=== PATIENT | female | born 1950 | race Hispanic/Latino ===

== ENCOUNTER 2021-05-08 06:24 | Emergency (ER) | payer OTHER ==
[2021-05-08 07:35] LABS: Protime INR 0.99
[2021-05-08 07:58] LABS: Absolute Lymphocytes (CBC) 1.4 K/uL (0.7-4.9); Basophils % 0.8 % (0-1.3); Lymphocytes % 18.7 % (15.3-44.8); MPV 8.2 fL (7.6-11.3); RBC Red Blood Cell Count 4.33 M/uL (3.86-4.86)
[2021-05-08 08:06] LABS: ALT/SGPT 26 U/L (12-78); AST/SGOT 18 U/L (15-37); Albumin 3.8 g/dL (3.4-5.0); Alkaline Phosphatase 94 U/L (45-117); BUN Blood Urea Nitrogen 20 mg/dL (7-18); Bicarbonate 29 mmol/L (21-32); Bilirubin Direct 0.1 mg/dL (0-0.2); Bilirubin Total 0.5 mg/dL (0.2-1.0); Glucose Level 144 mg/dL (74-106); Magnesium 1.8 mg/dL (1.8-2.4); NT PRO-BNP 69 pg/mL (<125); Potassium 3.9 mmol/L (3.5-5.1); Protein, Total 7.7 g/dL (6.4-8.2); Sodium Level 140 mmol/L (136-145); Troponin (Emerg Dept Use Only) < 0.02 ng/mL (0.0-0.045)
[2021-05-08 08:33] LABS: Lipase 197 U/L (73-393)
[2021-05-08 08:35] LABS: Urine Blood Trace-intact (Negative); Urine Glucose Negative (Negative); Urine Protein Negative (Negative); Urine Specific Gravity 1.025 (1.005-1.030); Urine pH 5.5 (5.0-7.0)
--- NOTE | 2021-05-08 09:07 | RAD REPORT ---
EXAM DESCRIPTION: CT - Abdomen Pelvis W Contrast - 05/08/2021 8:45 am CLINICAL HISTORY: Abdominal pain/left flank pain COMPARISON: none. TECHNIQUE: Computed axial tomography of the abdomen pelvis was obtained. 100 cc Isovue-300 was admin istered intravenously. Oral contrast was not requested which limits evaluation of bowel. All CT scans are performed using dose optimization technique as appropriate and may include automated exposure control or mA/KV adjustment according to patient size. FINDINGS: Some of the images are degraded by patient motion artifact. 5 millimeter nodule left lower lobe. Mild prominence of left and caudate lobes of the liver. Cholecystectomy Spleen, pancreas, adrenals kidneys are unremarkable. There is no evidence of diverticulitis. Normal appendix. No adnexal mass. IMPRESSION: Mild prominence of the caudate and left lobes of the liver may indicate chronic disease 5 millimeter left lower lobe pulmonary nodule. Refer to the chest x-ray report on today's date for re commendation
--- NOTE | 2021-05-08 09:08 | RAD REPORT ---
EXAM DESCRIPTION: Annie Single View05/08/2021 7:23 am CLINICAL HISTORY: Chest pain COMPARISON: 2011 FINDINGS: The lungs appear clear of acute infiltrate. The heart is mildly to moderately enlarged. Prominent opacity overlies medial right/ascending thoracic aorta. IMPRESSION: Prominent opacity overlies medial right/ascending thoracic aorta. This may represent an ectatic aorta or aneurysm. Probably less likely lymphadenopathy. CT chest is recommended
[2021-05-08] MEDS ORDERED: NA CHLORIDE 0.9% 500 ML ONE (09:36)
[2021-05-08] MEDS ORDERED: KETOROLAC 30 MG/ML INJ ONE (09:36)
[2021-05-08 10:01] LABS: Urine Bacteria 20-50 /HPF (<20); Urine RBC NONE SEEN /HPF (NONE SEEN); Urine Urothelial Cells <5 /HPF (NONE SEEN)
--- NOTE | 2021-05-08 10:18 | RAD REPORT ---
EXAM DESCRIPTION: CT - Thorax Wo Con - 05/08/2021 9:51 am CLINICAL HISTORY: Abnormal chest x-ray COMPARISON: April 2021 chest x-ray TECHNIQUE: Computed axial tomography of the chest was obtained. Contrast was not requested. All CT scans are performed using dose optimization technique as appropriate and may include automated exposure control or mA/KV adjustment according to patient size. FINDINGS: The evaluation of mediastinum, willis and vessels is limited secondary to lack of IV contras t administration. The lungs are clear. Right and left lobes of the thyroid gland or enlarged and narrow trachea. The left lobe of thyroid gl and extends substernally. Calcifications within the thyroid gland are present. Borderline enlargement of the central pulmonary artery. This in combination with a mildly ectatic asc ending thoracic aorta result in prominence of right mediastinum/hilum seen on chest x-ray. No thoraci c aortic aneurysm A pleural effusion is not present. No pericardial effusion IMPRESSION: Thyromegaly with substernal thyroid goiter. Borderline enlargement of central pulmonary artery.
--- NOTE | 2021-05-08 12:00 | ER ---
Nurse's Notes [facility] Name: Xochitl Barrera Age: 70 yrs Sex: Female : 1950 Arrival Date: 05/08/2021 Time: 06:27 Bed 19 Private MD: Diagnosis: UTI/ Urinary tract infection, site not specified;Abdominal pain, unspecified Presentation: 05/08 06:43 Chief complaint: Patient states: left sided abdominal pain/chest pain that radiates kg into left side of back, denies N/V/D/F, pain is worse with inspiration. Coronavirus screen: Client denies travel out of the [place] in the last 14 days. Ebola Screen: Patient negative for fever greater than or equal to 101.5 degrees Fahrenheit, and additional compatible Ebola Virus Disease symptoms Patient denies exposure to infectious person. Patient denies travel to an Ebola-affected area in the 21 days before illness onset. No symptoms or risks identified at this time. Initial Sepsis Screen: Does the patient meet any 2 criteria? No. Patient's initial sepsis screen is negative. Does the patient have a suspected source of infection? No. Patient's initial sepsis screen is negative. Risk Assessment: Do you want to hurt yourself or someone else? Patient reports no desire to harm self or others. Onset of symptoms was May 08, 2021. 06:43 Method Of Arrival: Ambulatory kg 06:43 Acuity: SHRAVAN 3 kg Historical: - Allergies: 06:45 No Known Allergies; kg - PMHx: 06:45 Hypertensive disorder; kg - PSHx: 06:45 None; kg - Immunization history:: Adult Immunizations up to date, Client reports receiving the 2nd dose of the Covid vaccine. - Social history:: Smoking status: Patient denies any tobacco usage or history of. Screenin:00 Abuse screen: Denies threats or abuse. Nutritional screening: No deficits noted. rb3 Tuberculosis screening: No symptoms or risk factors identified. Fall Risk None identified. Assessment: 07:00 General: Appears in no apparent distress. Behavior is calm, cooperative. Pain: rb3 Complains of pain in left mid back and left upper quadrant. Neuro: Level of Consciousness is awake, alert, obeys commands, Oriented to person, place, time, situation. Cardiovascular: Patient's skin is warm and dry. Respiratory: Airway is patent Respiratory effort is even, unlabored, Respiratory pattern is regular, symmetrical. GI: No signs and/or symptoms were reported involving the gastrointestinal system. : No signs and/or symptoms were reported regarding the genitourinary system. Musculoskeletal: Range of motion: intact in all extremities. 08:00 Reassessment: Patient appears in no apparent distress at this time. No changes from rb3 previously documented assessment. 09:29 Reassessment: Patient appears in no apparent distress at this time. Patient and/or rb3 family updated on plan of care and expected duration. Pain level reassessed. Patient is alert, oriented x 3, equal unlabored respirations, skin warm/dry/pink. 10:30 Reassessment: Patient appears in no apparent distress at this time. Patient and/or rb3 family updated on plan of care and expected duration. Pain level reassessed. 11:30 Reassessment: Patient appears in no apparent distress at this time. Pt requested pain rb3 medication. 12:30 Reassessment: Patient appears in no apparent distress at this time. Patient and/or rb3 family updated on plan of care and expected duration. Pain level reassessed. Patient is alert, oriented x 3, equal unlabored respirations, skin warm/dry/pink. Vital Signs: 06:43 BP 156 / 81; Pulse 87; Resp 18; Temp 98.1; Pulse Ox 99% on R/A; Weight 84.37 kg; Height kg 5 ft. 2 in. (157.48 cm); Pain 10/10; 08:00 BP 163 / 63; Pulse 68; Resp 17; Pulse Ox 99% on R/A; rb3 09:00 BP 159 / 70; Pulse 73; Resp 18; Pulse Ox 98% ; rb3 10:00 BP 172 / 65; Pulse 70; Resp 18; Pulse Ox 99% ; rb3 11:00 BP 172 / 65; Pulse 66; Resp 19; Pulse Ox 100% ; rb3 12:09 BP 169 / 76; Pulse 68; Resp 15; Pulse Ox 98% ; rb3 12:45 BP 163 / 79; Pulse 75; Resp 18; Pulse Ox 98% ; rb3 06:43 Body Mass Index 34.02 (84.37 kg, 157.48 cm) kg ED Course: 06:27 Patient arrived in ED. bp1 06:45 Triage completed. kg 06:45 Arm band placed on. kg 07:00 Cesario Guzman NP is PHCP. pm1 07:00 Amari Dang MD is Attending Physician. pm1 07:00 Patient has correct armband on for positive identification. Bed in low position. Call rb3 light in reach. Side rails up X 1. bus monitor on. Pulse ox on. NIBP on. 07:09 Inserted saline lock: 20 gauge in left antecubital area, using aseptic technique. Blood ms4 collected. 07:23 XRAY Chest (1 view) In Process Unspecified. EDMS 07:46 Roseanna Saavedra, RN is Primary Nurse. rb3 08:45 CT Abd/Pelvis - IV Contrast Only In Process Unspecified. EDMS 09:[address] In Process Unspecified. EDMS 12:58 No provider procedures requiring assistance completed. IV discontinued, intact, rb3 bleeding controlled, No redness/swelling at site. Pressure dressing applied. Administered Medications: 09:20 Drug: NS 0.9% 500 ml Route: IV; Rate: bolus; Site: left antecubital; rb3 09:50 Follow up: IV Status: Completed infusion rb3 09:20 Drug: Ketorolac 15 mg Route: IVP; Site: left antecubital; rb3 09:35 Follow up: Response: No adverse reaction; Pain is decreased rb3 12:00 Drug: Rocephin (cefTRIAXone) 1 grams Route: IV; Rate: calculated rate; Site: left rb3 antecubital; 12:30 Follow up: Response: No adverse reaction; IV Status: Completed infusion rb3 12:00 Drug: morphine 2 mg Route: IVP; Site: left antecubital; rb3 12:07 Not Given (changed order): morphine 4 mg IVP once; RASS on ADMIN: Combtv4, Very Agttd3, rb3 Agttd2, Rstlss1, AlertClm0, Drwsy-1, Lt Sdtn-2, Mod Sdtn-3, Dp Sdtn-4, UnArsble-5 12:59 Drug: Zofran (Ondansetron) 4 mg Route: IVP; Site: left antecubital; rb3 13:00 Follow up: Response: Medication administered at discharge. rb3 12:59 Drug: morphine 2 mg Route: IVP; Site: left antecubital; rb3 13:00 Follow up: Response: Medication administered at discharge. rb3 Outcome: 11:59 Discharge ordered by . pm1 12:58 Discharged to home via wheelchair, with family. rb3 12:58 Condition: stable 12:58 Discharge instructions given to patient, Instructed on discharge instructions, follow up and referral plans. medication usage, Demonstrated understanding of instructions, follow-up care, medications, Prescriptions given X 2. 12:58 Patient left the ED. rb3 Signatures: Dispatcher [employer] EDMS Cesario Guzman, ARMANDO TEST DESK TROUBLE LOCATOR pm1 Jonelle Winston Rebecca RN RN rb3 Alysha Fong, RN RN kg Mackenzie Caba RN RN ms4 Corrections: (The following items were deleted from the chart) 06:45 06:45 PMHx: None; kg kg 13:59 13:00 BP 163 / 79; Pulse 75bpm; Resp 18bpm; Pulse Ox 98%; rb3 rb3 14:01 14:00 Patient left the ED. rb3 rb3
--- NOTE | 2021-05-08 12:00 | EDPHYS ---
Physician Documentation [facility] Name: Xochitl Barrera Age: 70 yrs Sex: Female : 1950 Arrival Date: 05/08/2021 Time: 06:27 Bed 19 Private MD: ED Physician Amari Dang HPI: 05/08 08:18 This 70 yrs old Female presents to ER via Ambulatory with complaints of Left pm1 Side Pain under Breast. 08:18 The patient presents with abdominal pain in the left upper quadrant, And left flank pm1 pain. Onset: The symptoms/episode began/occurred 1 week(s) ago. Associated signs and symptoms: Pertinent negatives: nausea, vomiting, and diarrhea, dysuria, fever, shortness of breath, cough. The symptoms are described as crampy. Modifying factors: The symptoms are alleviated by nothing, the symptoms are aggravated by movement. Severity of pain: in the emergency department the pain is unchanged. The patient has not experienced similar symptoms in the past. The patient has not recently seen a physician. Historical: - Allergies: 06:45 No Known Allergies; kg - PMHx: 06:45 Hypertensive disorder; kg - PSHx: 06:45 None; kg - Immunization history:: Adult Immunizations up to date, Client reports receiving the 2nd dose of the Covid vaccine. - Social history:: Smoking status: Patient denies any tobacco usage or history of. ROS: 08:18 Constitutional: Negative for fever, chills, and weight loss, Cardiovascular: Negative pm1 for chest pain, palpitations, and edema, Respiratory: Negative for shortness of breath, cough, wheezing, and pleuritic chest pain. 08:18 : Negative for injury, bleeding, discharge, and swelling, MS/Extremity: Negative for injury and deformity, Skin: Negative for injury, rash, and discoloration, Neuro: Negative for headache, weakness, numbness, tingling, and seizure. 08:18 Abdomen/GI: Positive for abdominal pain, of the left upper quadrant, Negative for nausea, vomiting, and diarrhea, constipation. 08:18 Back: Positive for flank pain, on the left. 08:18 All other systems are negative. Exam: 08:18 Constitutional: This is a well developed, well nourished patient who is awake, alert, pm1 and in no acute distress. Head/Face: Normocephalic, atraumatic. 08:18 Skin: Warm, dry with normal turgor. Normal color with no rashes, no lesions, and no evidence of cellulitis. MS/ Extremity: Pulses equal, no cyanosis. Neurovascular intact. Full, normal range of motion. 08:18 Cardiovascular: Exam negative for acute changes, Rate: normal, Rhythm: regular, Pulses: no pulse deficits are appreciated, Heart sounds: normal, normal S1and S2. 08:18 Respiratory: Exam negative for acute changes, respiratory distress, shortness of breath, Breath sounds: are clear throughout. 08:18 Abdomen/GI: Inspection: abdomen appears normal, Palpation: soft, in all quadrants, mild abdominal tenderness, in the left upper quadrant. 08:18 Back: pain, that is mild, of the left mid back, vertebral tenderness, is not appreciated. 08:18 Neuro: Exam negative for acute changes, Orientation: is normal, Mentation: is normal, Motor: is normal, moves all fours. Vital Signs: 06:43 BP 156 / 81; Pulse 87; Resp 18; Temp 98.1; Pulse Ox 99% on R/A; Weight 84.37 kg; Height kg 5 ft. 2 in. (157.48 cm); Pain 10/10; 08:00 BP 163 / 63; Pulse 68; Resp 17; Pulse Ox 99% on R/A; rb3 09:00 BP 159 / 70; Pulse 73; Resp 18; Pulse Ox 98% ; rb3 10:00 BP 172 / 65; Pulse 70; Resp 18; Pulse Ox 99% ; rb3 11:00 BP 172 / 65; Pulse 66; Resp 19; Pulse Ox 100% ; rb3 12:09 BP 169 / 76; Pulse 68; Resp 15; Pulse Ox 98% ; rb3 12:45 BP 163 / 79; Pulse 75; Resp 18; Pulse Ox 98% ; rb3 06:43 Body Mass Index 34.02 (84.37 kg, 157.48 cm) kg MDM: 07:00 Patient medically screened. pm1 08:27 Data reviewed: vital signs. Data interpreted: Pulse oximetry: on room air is 99 %. pm1 Interpretation: normal. 11:59 Counseling: I had a detailed discussion with the patient and/or guardian regarding: the pm1 historical points, exam findings, and any diagnostic results supporting the discharge/admit diagnosis, lab results, radiology results, the need for outpatient follow up, a family practitioner, to return to the emergency department if symptoms worsen or persist or if there are any questions or concerns that arise at home. 11:59 Special discussion: I discussed with the patient the need to follow-up with the pm1 PCP/specialist for the noted incidental finding on X-ray/CT scanning. 12:09 ED course: MAINTENANCE MANAGER aware reviewed. Patient found but no prescriptions found. pm1 05/08 07:01 Order name: Basic Metabolic Panel; Complete Time: 08:39 ms4 05/08 07:01 Order name: CBC with Diff; Complete Time: 08:39 ms4 05/08 07:01 Order name: LFT's; Complete Time: 08:39 ms4 05/08 07:01 Order name: Magnesium; Complete Time: 08:39 ms4 05/08 07:01 Order name: NT PRO-BNP; Complete Time: 08:39 ms4 05/08 07:01 Order name: PT-INR; Complete Time: 07:44 ms4 05/08 07:01 Order name: Troponin (emerg Dept Use Only); Complete Time: 08:39 ms4 05/08 07:01 Order name: XRAY Chest (1 view); Complete Time: 09:30 ms4 05/08 08:11 Order name: Urine Microscopic Only; Complete Time: 10:02 pm1 05/08 08:18 Order name: CT Abd/Pelvis - IV Contrast Only; Complete Time: 09:30 pm1 05/08 08:28 Order name: Lipase; Complete Time: 08:39 EDMS 05/08 08:35 Order name: Urine Dipstick-Ancillary; Complete Time: 08:39 EDMS 05/08 10:01 Order name: Urine Culture EDMS 05/08 07:01 Order name: EKG; Complete Time: 07:02 ms4 05/08 07:01 Order name: Cardiac monitoring; Complete Time: 07:02 ms4 05/08 07:01 Order name: EKG - Nurse/Tech; Complete Time: 07:02 ms4 05/08 07:01 Order name: IV Saline Lock; Complete Time: 07:02 ms4 05/08 07:01 Order name: Labs collected and sent; Complete Time: 07:02 ms4 05/08 07:01 Order name: O2 Per Protocol; Complete Time: 07:02 ms4 05/08 07:01 Order name: O2 Sat Monitoring; Complete Time: 07:03 ms4 05/08 08:11 Order name: Urine Dipstick-Ancillary (obtain specimen); Complete Time: 08:40 pm1 05/08 09:39 Order name: Chest Wo Con CT; Complete Time: 11:00 pm1 Administered Medications: 09:20 Drug: NS 0.9% 500 ml Route: IV; Rate: bolus; Site: left antecubital; rb3 09:50 Follow up: IV Status: Completed infusion rb3 09:20 Drug: Ketorolac 15 mg Route: IVP; Site: left antecubital; rb3 09:35 Follow up: Response: No adverse reaction; Pain is decreased rb3 12:00 Drug: Rocephin (cefTRIAXone) 1 grams Route: IV; Rate: calculated rate; Site: left rb3 antecubital; 12:30 Follow up: Response: No adverse reaction; IV Status: Completed infusion rb3 12:00 Drug: morphine 2 mg Route: IVP; Site: left antecubital; rb3 12:07 Not Given (changed order): morphine 4 mg IVP once; RASS on ADMIN: Combtv4, Very Agttd3, rb3 Agttd2, Rstlss1, AlertClm0, Drwsy-1, Lt Sdtn-2, Mod Sdtn-3, Dp Sdtn-4, UnArsble-5 12:59 Drug: Zofran (Ondansetron) 4 mg Route: IVP; Site: left antecubital; rb3 13:00 Follow up: Response: Medication administered at discharge. rb3 12:59 Drug: morphine 2 mg Route: IVP; Site: left antecubital; rb3 13:00 Follow up: Response: Medication administered at discharge. rb3 Disposition: 05/09 05:33 Co-signature as Attending Physician, Amari Dang MD. [email or web address] Disposition Summary: 05/08/21 11:59 Discharge Ordered Location: Home pm1 Problem: new pm1 Symptoms: have improved pm1 Condition: Stable pm1 Diagnosis - UTI/ Urinary tract infection, site not specified pm1 - Abdominal pain, unspecified pm1 Followup: pm1 - With: Emergency Department - When: As needed - Reason: Worsening of condition Followup: pm1 - With: Private Physician - When: 2 - 3 days - Reason: Recheck today's complaints, Continuance of care, Re-evaluation by your physician Discharge Instructions: - Discharge Summary Sheet pm1 - Abdominal Pain, Adult pm1 - Urinary Tract Infection, Adult pm1 Forms: - Medication Reconciliation Form pm1 - Thank You Letter pm1 - Antibiotic Education pm1 - Prescription Opioid Use pm1 Prescriptions: - Bactrim DS 800-160 mg Oral Tablet - take 1 tablet by ORAL route every 12 hours for 10 days; 20 tablet; Refills: 0, pm1 Product Selection Permitted - Tramadol 50 mg Oral Tablet - take 1 tablet by ORAL route every 8 hours as needed; 12 tablet; Refills: 0, pm1 Product Selection Permitted Signatures: Dispatcher [employer] EDMS Cesario Guzman, ARMANDO FLAT MACHINE CUTTER pm1 Amari Dang MD MD [email or web address] Roseanna Saavedra RN RN rb3 Alysha Fong RN RN kg Mackenzie Caba RN RN ms4 Corrections: (The following items were deleted from the chart) 05/08 06:45 06:45 PMHx: None; kg kg 08:28 07:04 LIPASE+C.LAB.BRZ ordered. EDMS EDMS
[2021-05-08] MEDS ORDERED: MORPHINE 2 MG/ML SYR ONE ×2 (12:22→13:17)
[2021-05-08] MEDS ORDERED: CEFTRIAXONE/SWI 1gm 1 GM/10 ML SYR ONE (12:22)
[2021-05-08] MEDS ORDERED: ONDANSETRON 4 MG/2 ML VIAL ONE (13:17)
[2021-05-08 14:09] VITALS: TEMP 98.1
[2021-05-08 14:16] VITALS: O2SAT 98
[2021-05-08 14:17] VITALS: BP 163/79
--- NOTE | 2021-05-09 10:43 | EKG ---
Test Date: 2021-05-08 Test Time: 06:55:50 Radiator Cleaner: DEANNA MEASUREMENT RESULTS: Intervals: Rate: 79 MO: 158 QRSD: 68 QT: 376 QTc: 431 [place]: P: 40 MO: 158 QRS: -16 T: 15 INTERPRETIVE STATEMENTS: Normal sinus rhythm Inferior infarct, age undetermined Abnormal ECG Compared to ECG 03/03/2014 20:12:36 Myocardial infarct finding now present Electronically Signed On 05-09-21 10:39:59 CDT by Malachi Avila
== END 2021-05-08 14:00 | disposition home or self-care (01) ==
LOC: ER 06:24
DX: N39.0 Urinary tract infection, site not specified (principal); I10 Essential (primary) hypertension
CPT/HCPCS: 96365; 93005; 87088; 85025; 87086; 80048; 36415; 83735; 85610; 80076; 84484; 83690; 83880; 71250; 74177; 71045; 96375; 99284; Q9967; J2270 ×2; J0696; J7040; J2405; 81003; 81015